=== PATIENT | male | born 1970 | race Caucasian/White ===

== ENCOUNTER 2019-10-26 19:08 | Emergency (ER) | payer BC ==
[2019-10-26] MEDS ORDERED: Lidocaine 1% 30 ML SDV INJECT ONE (19:15)
[2019-10-26] MEDS ORDERED: Bacitracin Oint 1 GM U/D Packet TOP ONE (19:15)
--- NOTE | 2019-10-26 19:43 | EDM.PDOC ---
ED HPI GENERAL MEDICAL PROBLEM - General Chief Complaint: Laceration Stated Complaint: RING FINGER CUTTING PATATO'S Time Seen by Provider: 10/26/19 19:20 Source of Information: Reports: Patient History Limitations: Reports: No Limitations - History of Present Illness INITIAL COMMENTS - FREE TEXT/NARRATIVE: ED with laceration to left ring finger while cutting potatoes with fillet knife. Tetnus current. - Related Data Allergies Allergy/AdvReac Type Severity Reaction Status Date / Time No Known Allergies Allergy Verified 10/26/19 19:14 Home Meds: Home Meds Lansoprazole [Prevacid] 30 mg PO DAILY 10/26/19 [History] Past Medical History Gastrointestinal History: Reports: GERD Social & Family History - Family History Family Medical History: Noncontributory - Tobacco Use Smoking Status *Q: Never Smoker - Caffeine Use Caffeine Use: Reports: Soda - Recreational Drug Use Recreational Drug Use: No ED ROS GENERAL - Review of Systems Review Of Systems: Comprehensive ROS is negative, except as noted in HPI. ED EXAM, SKIN/RASH Exam: See Below Exam Limited By: No Limitations General Appearance: Alert, No Apparent Distress Eye Exam: Bilateral Eye: EOMI Ears: Normal External Exam Nose: Normal Inspection Throat/Mouth: Normal Inspection Head: Atraumatic, Normocephalic Neck: Normal Inspection Respiratory/Chest: No Respiratory Distress, Normal Breath Sounds Cardiovascular: Normal Peripheral Pulses Neurological: Alert, Oriented, Normal Cognition, Normal Gait, No Motor/Sensory Deficits Skin: Warm, Normal Color, Wound/Incision (proximal fat pad left ring finger 1.5cm) Location, Skin: Upper Extremity, Left ED SKIN PROCEDURES - Laceration/Wound Repair Left Digit - 4th (Ring) Appearance: Superficial Distal NVT: Neuro & Vascular Intact Anesthetic Type: Local Local Anesthesia - Lidocaine (Xylocaine): 1% Plain Local Anesthetic Volume: 2cc Skin Prep: Chlorhexidine (Hibiciens), Saline Closed with: Sutures Lac/Wound length In cm: 1.5 Suture Size: 4-0 # of Sutures: 6 Suture Type: Nylon, Interrupted Drain Placement: No Sterile Dressing Applied: Nurse Tetanus Status Addressed: Yes Complications: No Course - Vital Signs Last Recorded V/S: Last Vital Signs Temp 98.1 F 10/26/19 19:16 Pulse 107 H 10/26/19 19:16 Resp 18 10/26/19 19:16 BP 148/79 H 10/26/19 19:16 Pulse Ox 98 10/26/19 19:16 - Orders/Labs/Meds Meds: Medications Discontinued Medications Generic Name Dose Route Start Last Admin Trade Name Fidel PRN Reason Stop Dose Admin Bacitracin 1 dose 10/26/19 19:15 10/26/19 19:40 Bacitracin Oint 1 Gm TOP 10/26/19 19:16 1 dose ONETIME ONE Administration Lidocaine HCl 30 ml 10/26/19 19:15 10/26/19 19:30 Xylocaine-Mpf 1% INJECT 10/26/19 19:16 30 ml ONETIME ONE Administration Departure - Departure Time of Disposition: 19:41 Disposition: Home, Self-Care 01 Condition: Good Clinical Impression: Broken skin - Discharge Information *PRESCRIPTION DRUG MONITORING PROGRAM REVIEWED*: No *COPY OF PRESCRIPTION DRUG MONITORING REPORT IN PATIENT MATTHEW: No Instructions: Laceration Care, Adult, [id number], Sutures, Struthers, or Adhesive Wound Closure, [id number] Referrals: PCP,None [Primary Care Provider] - Forms: ED Department Discharge Additional Instructions: keep clean and dry wash with soap and water twice daily antibiotic ointment sutures out 10-14 days follow up if redness swelling or drainage from wound keep elevated tonight alternate tylenol and ibuprofen every 4 hours as needed for discomfort Sepsis Event Note (ED) - Evaluation Sepsis Screening Result: No Definite Risk - Focused Exam Vital Signs: Vital Signs Temp Pulse Resp BP Pulse Ox 10/26/19 19:16 98.1 F 107 H 18 148/79 H 98
== END 2019-10-26 19:45 | disposition home or self-care (01) ==
LOC: DL.ED 19:08
DX: S61.215A Laceration without foreign body of left ring finger without damage to nail, initial encounter (principal); K21.9 Gastro-esophageal reflux disease without esophagitis; Z79.899 Other long term (current) drug therapy; W26.0XXA Contact with knife, initial encounter
CPT/HCPCS: 12001; 99282; J2001